=== PATIENT | female | born 1990 | race Caucasian/White ===

== ENCOUNTER 2019-10-28 18:59 | Emergency (ER) | payer OTHER ==
[2019-10-28 19:10] VITALS: BP 156/80; PULSE 90; TEMP 97.6; BMI 33.6
--- NOTE | 2019-10-28 19:13 | PDOC ---
Rapid Medical Evaluation Chief Complaint: Rash Time Seen by Provider: 10/28/19 19:07 Medical Evaluation: Allergies Allergy/AdvReac Type Severity Reaction Status Date / Time No Known Allergies Allergy Verified 10/28/19 19:07 10/28/19 19:08 Pt currently 24 weeks , presents for evaluation of rash starting one week ago. She states it is itchy and gets better with benadryl. She also notes she is taking bactrim for belly button drainage. Had labs done for the rash back in September which were normal. Exam: blanching lacy rash to chest Orders: nothing Pt to proceed to the ER for further evaluation Discharge Disposition - Diagnosis Rash - Referrals - Patient Instructions - Post Discharge Activity
--- NOTE | 2019-10-28 20:51 | PDOC ---
History of Present Illness - General Chief Complaint: Rash Stated Complaint: RASH Time Seen by Provider: 10/28/19 19:07 - History of Present Illness Initial Comments: 10/28/19 20:46 38-week gravid 29-year-old female presents for evaluation of multiple complaints. She has discharge from her bellybutton she describes as purulent. A rash on her vagina. Under her breasts there is another rash. And she shows me a positive culture report for trichomonas. She was never treated for trichomonas. The report was dated on the of this month and the culture was taken in September Past History - Past Medical History Allergies/Adverse Reactions: Allergies Allergy/AdvReac Type Severity Reaction Status Date / Time amoxicillin Allergy Itching Verified 10/28/19 19:08 - Psycho Social/Smoking Cessation Hx Smoking History: Never smoked Hx Alcohol Use: No Drug/Substance Use Hx: No Review of Systems - Review of Systems Constitutional: No: Fever : Yes: Discharge. No: Burning, Dysuria Integumentary: Yes: Pruritus, Rash *Physical Exam - Vital Signs Last Vital Signs Temp Pulse Resp BP Pulse Ox 97.6 F 90 16 156/80 97 10/28/19 19:00 10/28/19 19:00 10/28/19 19:00 10/28/19 19:00 10/28/19 19:00 - Physical Exam 10/28/19 20:47 GENERAL: The patient is awake, alert, and fully oriented, in no acute distress. HEAD: Normal with no signs of trauma. EYES: sclera anicteric, conjunctiva clear. ENT: Ears normal tympanic membranes normal oropharynx clear uvula midline NECK: Normal range of motion LUNGS: Breath sounds equal, clear to auscultation bilaterally. No wheezes, and no crackles. HEART: S1 and S2 without murmur, rub or gallop. ABDOMEN: Gravid abdomen EXTREMITIES: Normal range of motion, no edema. No clubbing or cyanosis. No cords, erythema, or tenderness. NEUROLOGICAL: Cranial nerves II through XII grossly intact. Normal speech, normal gait. PSYCH: Normal mood, normal affect. SKIN: Warm, Dry, normal turgor, The skin examination was done with a female nurse in the room. There are raised wheals on the external genitalia without indication of secondary infection there is a scaly rash on the anterior breast and under surface of the breast. There is no discharge from the nav Medical Decision Making - Medical Decision Making 10/28/19 20:49 I have obtained a vaginal swab culture and a urinary culture. Metronidazole is category B in . I will hold off on treatment till have a positive culture. Discharge - Discharge Information Problems reviewed: Yes Clinical Impression/Diagnosis: Rash Condition: Stable Disposition: HOME - Admission No - Follow up/Referral Referrals: ON STAFF,NOT [Primary Care Provider] - - Patient Discharge Instructions Additional Instructions: Urine culture for gonorrhea chlamydia and trichomonas were done. A vaginal swab was also done. You may take Benadryl as directed for itching and use calamine lotion topically. Return to the emergency room for worsening symptoms and without fail follow-up with your garage door hanger in 1 to 2 days for further evaluation and treatment options. - Post Discharge Activity
[2019-10-28 21:11] LABS: PH,URINE 5.5 (5.0-8.0); URINE APPEARANCE CLOUDY; URINE BILIRUBIN NEGATIVE (NEGATIVE); URINE COLOR YELLOW; URINE GLUCOSE (UA) NEGATIVE (NEGATIVE); URINE KETONE TRACE (NEGATIVE); URINE LEUK ESTERASE NEGATIVE (NEGATIVE); URINE NITRITE NEGATIVE (NEGATIVE); URINE PROTEIN NEGATIVE (NEGATIVE); URINE UROBILINOGEN 0.2 mg/dL (0.2-1.0)
== END 2019-10-28 21:00 | disposition home or self-care (01) ==
LOC: JER 18:59
DX: O26.892 Other specified pregnancy related conditions, second trimester (principal); R21 Rash and other nonspecific skin eruption; Z3A.24 24 weeks gestation of pregnancy; Z88.0 Allergy status to penicillin
CPT/HCPCS: 36415; 81003; 87070; 87075; 87086; 87186; 87205; 87491; 87591; 99281-25

== ENCOUNTER 2019-11-03 16:55 | Inpatient (IN) | payer OTHER ==
[2019-11-03 17:57] VITALS: BMI 35.2
[2019-11-03 19:42] LABS: RETICULOCYTES 3.1 % (0.5-1.5)
[2019-11-03 19:51] LABS: BASO % 0.3 % (0-2.0); EOS % 1.8 % (0-4.5); HEMATOCRIT 34.5 % (32.4-45.2); HEMOGLOBIN 11.2 GM/dL (10.7-15.3); LYMPH % 15.7 % (8-40); MCH 28.4 pg (25.7-33.7); MCHC 32.6 g/dl (32.0-36.0); MEAN CELL VOLUME 87.3 fl (80-96); MEAN PLT VOLUME 11.8 fl (7.5-11.1); MONO % 4.9 % (3.8-10.2); NEUT % 77.3 % (42.8-82.8); PLATELET COUNT 151 K/MM3 (134-434); RBC 3.95 M/mm3 (3.60-5.2); RDW 15.5 % (11.6-15.6); WHITE BLOOD COUNT 12.4 K/mm3 (4.0-10.0)
[2019-11-03 20:00] LABS: URIC ACID 4.8 mg/dL (2.6-7.2)
[2019-11-03 20:01] LABS: BLOOD UREA NITROGEN 9.2 mg/dL (7-18); CALCIUM 9.1 mg/dL (8.5-10.1); CREATININE 0.6 mg/dL (0.55-1.3); POTASSIUM 4.2 mmol/L (3.5-5.1)
[2019-11-03 20:10] LABS: INR 0.88 (0.83-1.09); PROTHROMBIN TIME (PATIENT) 10.4 SEC (9.7-13.0)
[2019-11-03] MEDS ORDERED: DINOPROSTONE 10 MG VAGINAL SUPPOSITORY VG ONE (20:45)
--- NOTE | 2019-11-03 20:56 | HP ---
Past Medical History - Admission Chief Complaint: PUPPS. 39 weeks History of Present Illness: 29 yo G P EDC EGA 38.6 weeks admitted for PUPPS for cervidil induction History Source: Patient Limitations to Obtaining History: No Limitations - Past Medical History ...: 2 ...Para: 1 ...Term: 0 ...: 0 ...Spon : 0 ...Induced : 1 ...Multiple Gestation: 0 ...EDC by Sono: 11/08/19 - Past Surgical History Past Surgical History: Yes: None Hx Myomectomy: No Hx Transabdominal Cerclage: No - Smoking History Smoking history: Never smoked Have you smoked in the past 12 months: No - Alcohol/Substance Use Hx Alcohol Use: No - Social History History of Recent Travel: No Home Medications - Allergies Allergies/Adverse Reactions: Allergies Allergy/AdvReac Type Severity Reaction Status Date / Time amoxicillin Allergy Intermediate Itching Verified 11/03/19 18:35 - Home Medications Home Medications: Ambulatory Orders Cephalexin [Keflex] 500 mg PO BID #14 capsule 11/02/19 Docusate Sodium [Colace] 100 mg PO DAILY 11/03/19 Ferrous Sulfate [Iron] 325 mg PO DAILY 11/03/19 Vitamins (Sjr) - 1 tab PO DAILY 11/03/19 Valacyclovir HCl [Valtrex] 500 mg PO DAILY 11/03/19 Review of Systems - Review of Systems Constitutional: reports: No Symptoms Eyes: reports: No Symptoms HENT: reports: No Symptoms Neck: reports: No Symptoms Cardiovascular: reports: No Symptoms Respiratory: reports: No Symptoms Gastrointestinal: reports: No Symptoms Genitourinary: reports: No Symptoms Breasts: reports: No Symptoms Reported Musculoskeletal: reports: No Symptoms Integumentary: reports: No Symptoms Neurological: reports: No Symptoms Endocrine: reports: No Symptoms Hematology/Lymphatic: reports: No Symptoms Psychiatric: reports: No Symptoms Physical Exam - Maternity Vital Signs: Vital Signs Temperature 98.6 F 11/03/19 18:00 Pulse Rate 90 11/03/19 20:00 Respiratory Rate 11/03/19 20:00 Blood Pressure 135/78 11/03/19 20:00 O2 Sat by Pulse Oximetry (%) Constitutional: Yes: Well Nourished, No Distress Cardiovascular: Yes: WNL Breast(s): Yes: WNL - Abdominal Exam/OB Fundal Height: 39 Number of Fetuses: Single Presentation: Vertex Contractions: No Category: I - Vaginal Exam/OB Dilatation (cm): 1 Effacement (%): 70 Amniotic Membrane Status: Intact Presentation: Vertex/Position Station: -1 - Physical Exam Musculoskeletal: Yes: WNL Extremities: Yes: WNL - Labs Lab Results: CBC, BMP 11/03/19 18:50 11/03/19 18:50 Problem List - Problems (1) PUPP (pruritic urticarial papules and plaques of ) Problems reviewed: Yes Code(s): O26.86 - PRURITIC URTICARIAL PAPULES AND PLAQUES OF (PUPPP) (2) 39 weeks gestation of Code(s): Z3A.39 - 39 WEEKS GESTATION OF Assessment/Plan 38.3 week PUPPS Plan cervidil
[2019-11-03] MEDS ORDERED: diphenhydrAMINE HCL 25 MG CAPSULE (FP) PO PRN (21:01)
[2019-11-03] MEDS ORDERED: BUTORPHANOL TARTRATE 1 MG/ML VIAL IVPB ONE (21:02)
[2019-11-04] MEDS: ELECTROLYTE-148 SOLN 1,000 ML IV SCH ×2 (03:30→09:46)
--- NOTE | 2019-11-04 03:42 | PN ---
Ante-Partal Exam - Subjective Subjective: Pt doing well Vital Signs: Vital Signs Temperature 98.4 F 11/04/19 02:00 Pulse Rate 85 11/04/19 02:00 Respiratory Rate 20 11/04/19 02:00 Blood Pressure 124/77 11/04/19 02:00 O2 Sat by Pulse Oximetry (%) Bleeding: No Headache: No Visual changes: No Right upper quadrant pain: No - Contractions Contractions: Yes Regularity: Irregular Intensity: Mild/Mod Monitor Mode: External - Exam during Labor Heart Rate: 150 Variability: Moderate Heart Rate Location: [facility] Category: I Monitor Accelerations: Present Monitor Decelerations: None Exam: Vaginal Dilatation (cm): 2 Effacement (%): 80 Amniotic Membrane Status: Intact Presentation: Vertex Station: -1 - Intrapartum Hemorrhage Risk Risk Score: 0 Risk Level: Low Risk - Assessment/Plan Assessment/Plan: PUPPS 39 week Prodromal labor Cat 1 Plan cervidil removed will start pitocin
[2019-11-04] MEDS: CLINDAMYCIN 600MG PREMIX IVPB 600 MG/50 ML BAG IVPB SCH ×2 (03:45→10:00)
[2019-11-04] MEDS ORDERED: OXYTOCIN 30 UNITS in 0.9% NS 30 UNIT/500 ML INFUS.BAG IVPB ONE (04:05)
[2019-11-04] MEDS ORDERED: CLINDAMYCIN PHOSPHATE 600 MG/4 ML VIAL ONE ×2 (04:07→09:50)
[2019-11-04] MEDS ORDERED: OXYTOCIN 30 UNITS in 0.9% NS 30 UNIT/500 ML INFUS.BAG IVPB SCH (04:45)
--- NOTE | 2019-11-04 06:51 | PN ---
Ante-Partal Exam - Subjective Subjective: Pt with bloody show Pt on pitocin 4 mu pt desires epidural Vital Signs: Vital Signs Temperature 98.0 F 11/04/19 06:00 Pulse Rate 82 11/04/19 06:00 Respiratory Rate 20 11/04/19 06:00 Blood Pressure 131/76 11/04/19 06:00 O2 Sat by Pulse Oximetry (%) Bleeding: Yes Bleeding Description: Mild Headache: No Visual changes: No Right upper quadrant pain: No - Contractions Contractions: Yes Monitor Mode: External - Exam during Labor Variability: Moderate Category: I Monitor Accelerations: Present Monitor Decelerations: None Exam: Vaginal (bloody show) Dilatation (cm): 2 Effacement (%): 80 Amniotic Membrane Status: Intact Amniotic Fluid: Blood Stained Presentation: Vertex Station: -1 - Intrapartum Hemorrhage Risk Risk Score: 0 Risk Level: Low Risk - Assessment/Plan Assessment/Plan: PUPPS 39 week Plan epidural
[2019-11-04] MEDS ORDERED: LIDO 2%/EPI 1:200000 PRESRVFRE (20 ML SDVIAL) ONE ×2 (06:53→13:51)
[2019-11-04] MEDS ORDERED: FENTANYL/BUPIVACAINE/NS/PF - PCEA - 50 ML DISP.SYRIN EP ONE ×3 (06:57→14:38)
[2019-11-04] MEDS ORDERED: NALOXONE HCL 0.4 MG/ML VIAL IVPUSH PRN (07:38)
[2019-11-04] MEDS ORDERED: FENTANYL/BUPIVACAINE/NS/PF - PCEA - 50 ML DISP.SYRIN EP SCH (07:45)
--- NOTE | 2019-11-04 08:04 | PN ---
Ante-Partal Exam - Subjective Subjective: Pt doing well after epidural Vital Signs: Vital Signs Temperature 98.0 F 11/04/19 06:00 Pulse Rate 82 11/04/19 06:00 Respiratory Rate 20 11/04/19 06:00 Blood Pressure 131/76 11/04/19 06:00 O2 Sat by Pulse Oximetry (%) Bleeding: Yes Bleeding Description: Mild Headache: No Visual changes: No Right upper quadrant pain: No - Contractions Contractions: Yes Regularity: Regular Intensity: Mild/Mod Monitor Mode: External - Exam during Labor Variability: Moderate Heart Rate Location: [facility] Category: I Monitor Decelerations: None Exam: Vaginal Dilatation (cm): 2-3 Effacement (%): 80 Amniotic Membrane Status: Ruptured Amniotic Fluid: Blood Stained Presentation: Vertex Station: -1 - Intrapartum Hemorrhage Risk Risk Score: 1 Risk Level: Medium Risk - Assessment/Plan Assessment/Plan: PUPPS mild bleeding after rupture Cat 1 AROM - bloody Plan Continue observation
--- NOTE | 2019-11-04 08:21 | PN ---
Ante-Partal Exam - Subjective Subjective: Pt with passing of clot after 3 cm Vital Signs: Vital Signs Temperature 98.0 F 11/04/19 06:00 Pulse Rate 82 11/04/19 06:00 Respiratory Rate 20 11/04/19 06:00 Blood Pressure 131/76 11/04/19 06:00 O2 Sat by Pulse Oximetry (%) Bleeding: Yes Headache: No Visual changes: No Right upper quadrant pain: No - Contractions Contractions: Yes Regularity: Regular Intensity: Mild/Mod Monitor Mode: External - Exam during Labor Variability: Moderate Heart Rate Location: [facility] Category: I Monitor Accelerations: Present Monitor Decelerations: None Exam: Vaginal Dilatation (cm): 2-3 Effacement (%): 80 Amniotic Membrane Status: Ruptured Amniotic Fluid: Blood Stained Presentation: Vertex Station: -1 - Intrapartum Hemorrhage Risk High Risk Factors: New Active Bleeding Risk Score: 2 Risk Level: High Risk - Assessment/Plan Assessment/Plan: Cat 1 Vaginal bleeding ro placenta abruption PUPPS Plan usg at bedroom
[2019-11-04] MEDS ORDERED: diphenhydrAMINE HCL 25 MG CAPSULE (FP) PO PRN (08:27)
[2019-11-04] MEDS ORDERED: diphenhydrAMINE HCL 25 MG CAPSULE (FP) PO ONE (09:04)
[2019-11-04] MEDS ORDERED: OXYTOCIN 20 UNITS in 0.9% NS 20 UNIT/1,000 ML INFUS.BAG IV ONE (15:37)
--- NOTE | 2019-11-04 16:03 | PN ---
Ante-Partal Exam - Subjective Subjective: Pt doing well and feeling pressure Vital Signs: Vital Signs Temperature 98.6 F 11/04/19 13:45 Pulse Rate 95 H 11/04/19 15:15 Respiratory Rate 18 11/04/19 15:15 Blood Pressure 127/79 11/04/19 15:15 O2 Sat by Pulse Oximetry (%) 100 11/04/19 15:15 Bleeding: No Headache: No Visual changes: No Right upper quadrant pain: No - Contractions Contractions: Yes Regularity: Regular Intensity: Moderate Monitor Mode: External - Exam during Labor Heart Rate: 150 Variability: Moderate Category: I Exam: Vaginal Dilatation (cm): FD Effacement (%): 100 Amniotic Membrane Status: Ruptured Presentation: Vertex Station: +2 - Intrapartum Hemorrhage Risk Risk Score: 1 Risk Level: Medium Risk - Assessment/Plan Assessment/Plan: Stage 2 Cat 1 plan Anticipate vaginal delivery
[2019-11-04] MEDS ORDERED: BENZOCAINE 20% 57 GM BOTTLE TP PRN (16:04)
[2019-11-04] MEDS ORDERED: METHYLERGONOVINE MALEATE 0.2 MG/1 ML AMP IM PRN (16:04)
[2019-11-04] MEDS ORDERED: BISACODYL 10 MG SUPP.RECT PR PRN (16:04)
[2019-11-04] MEDS ORDERED: BENZOCAINE 28 GM HEMORRHOIDAL OINTMENT PR PRN (16:04)
[2019-11-04] MEDS ORDERED: WITCH HAZEL 50% (TUCKS) 40 PAD/JAR PAD TP PRN (16:04)
[2019-11-04] MEDS ORDERED: LIDOCAINE HCL 1% PRESERVATIVE FREE - 30ML VIAL ONE (16:10)
[2019-11-04] MEDS: OXYTOCIN 20 UNITS in 0.9% NS 20 UNIT/1,000 ML INFUS.BAG IV SCH (16:17)
--- NOTE | 2019-11-04 16:36 | PN ---
Delivery - Delivery Vaginal Delivery: No Problems Type of Anesthesia: Epidural Episiotomy/Laceration: 1st degree (primary laceration repaired with 2-0 chromic suture) EBL (cc): 250 Delivery, Single - Stages of Labor Placenta: Yes: Spontaneous - Condition of Infant Gender: Male Position: OA - Feeding Plan Initial Plan: Exclusive throughout hospitalization
[2019-11-04] MEDS ORDERED: IBUPROFEN 600 MG TABLET (FP) PO ONE (17:42)
[2019-11-04] MEDS ORDERED: ACETAMINOPHEN 325 MG TABLET (FP) ONE (17:43)
[2019-11-04] MEDS: IBUPROFEN 600 MG TABLET (FP) PO PRN ×2 (17:45→23:14)
[2019-11-04] MEDS: ACETAMINOPHEN 325 MG TABLET (FP) PO PRN ×2 (17:45→23:14)
[2019-11-05 08:31] LABS: BASO % 0.3 % (0-2.0); EOS % 2.1 % (0-4.5); HEMATOCRIT 28.2 % (32.4-45.2); HEMOGLOBIN 9.2 GM/dL (10.7-15.3); LYMPH % 18.5 % (8-40); MCH 28.8 pg (25.7-33.7); MCHC 32.7 g/dl (32.0-36.0); MEAN CELL VOLUME 88.2 fl (80-96); MEAN PLT VOLUME 11.9 fl (7.5-11.1); MONO % 5.9 % (3.8-10.2); NEUT % 73.2 % (42.8-82.8); PLATELET COUNT 113 K/MM3 (134-434); RBC 3.19 M/mm3 (3.60-5.2); RDW 15.5 % (11.6-15.6); WHITE BLOOD COUNT 11.7 K/mm3 (4.0-10.0)
--- NOTE | 2019-11-05 09:10 | PN ---
Post Note - Post Date of Delivery: 11/04/19 Post Day: 1 Vital Signs: Vital Signs - 24 hr 11/04/19 11/04/19 11/04/19 09:30 09:45 10:00 Temperature 97.9 F Pulse Rate 75 75 71 Respiratory 18 17 18 Rate Blood Pressure 124/82 124/82 111/67 O2 Sat by Pulse 100 100 100 Oximetry (%) 11/04/19 11/04/19 11/04/19 10:15 10:30 10:45 Temperature Pulse Rate 69 72 69 Respiratory 18 16 17 Rate Blood Pressure 119/73 121/82 121/78 O2 Sat by Pulse 100 100 100 Oximetry (%) 11/04/19 11/04/19 11/04/19 11:00 11:15 11:30 Temperature Pulse Rate 76 78 76 Respiratory 18 17 18 Rate Blood Pressure 130/83 122/79 125/78 O2 Sat by Pulse 100 100 99 Oximetry (%) 11/04/19 11/04/19 11/04/19 11:45 12:00 12:15 Temperature 98.1 F Pulse Rate 85 80 78 Respiratory 18 16 16 Rate Blood Pressure 125/84 131/78 119/79 O2 Sat by Pulse 100 100 100 Oximetry (%) 11/04/19 11/04/19 11/04/19 12:30 12:45 13:00 Temperature Pulse Rate 80 80 91 H Respiratory 17 18 18 Rate Blood Pressure 111/76 127/80 127/77 O2 Sat by Pulse 100 99 100 Oximetry (%) 11/04/19 11/04/19 11/04/19 13:15 13:30 13:45 Temperature 98.6 F Pulse Rate 86 93 H 84 Respiratory 18 20 18 Rate Blood Pressure 124/79 137/79 125/83 O2 Sat by Pulse 99 100 100 Oximetry (%) 11/04/19 11/04/19 11/04/19 14:00 14:15 14:30 Temperature Pulse Rate 75 77 77 Respiratory 18 17 18 Rate Blood Pressure 125/71 124/71 127/71 O2 Sat by Pulse 99 100 100 Oximetry (%) 11/04/19 11/04/19 11/04/19 14:45 15:00 15:15 Temperature Pulse Rate 72 75 95 H Respiratory 17 18 18 Rate Blood Pressure 128/72 122/81 127/79 O2 Sat by Pulse 100 100 100 Oximetry (%) 11/04/19 11/04/19 11/04/19 15:30 15:45 16:30 Temperature Pulse Rate 112 H 103 H 101 H Respiratory 18 18 20 Rate Blood Pressure 126/87 131/86 125/73 O2 Sat by Pulse 100 100 Oximetry (%) 11/04/19 11/04/19 11/04/19 16:45 17:00 17:15 Temperature 98.2 F Pulse Rate 91 H 92 H 100 H Respiratory 20 20 20 Rate Blood Pressure 121/74 124/72 136/73 O2 Sat by Pulse Oximetry (%) 11/04/19 11/04/19 11/05/19 18:35 20:56 00:27 Temperature 97.9 F 98.1 F 98.5 F Pulse Rate 100 H 97 H 100 H Respiratory 18 20 20 Rate Blood Pressure 136/74 130/68 128/72 O2 Sat by Pulse Oximetry (%) 11/05/19 11/05/19 05:00 08:57 Temperature 98.5 F 98.1 F Pulse Rate 100 H 96 H Respiratory 20 18 Rate Blood Pressure 116/65 114/64 O2 Sat by Pulse Oximetry (%) Labs: Laboratory Results - last 24 hr 11/03/19 11/04/19 11/04/19 18:50 16:13 16:15 WBC RBC Hgb Hct MCV MCH MCHC RDW Plt Count MPV Absolute Neuts (auto) Neutrophils % Lymphocytes % Monocytes % Eosinophils % Basophils % Nucleated RBC % Haptoglobin 123 Cord Blood pH 7.26 7.34 Cord Blood PCO2 58.4 41.9 Cord Blood PO2 < 49 H < 49 H Cord Blood HCO3 25.3 22.0 Cord Base Excess -3.3 L -3.3 L 11/05/19 07:42 WBC 11.7 H RBC 3.19 L Hgb 9.2 L Hct 28.2 L D MCV 88.2 MCH 28.8 MCHC 32.7 RDW 15.5 Plt Count 113 L D MPV 11.9 H Absolute Neuts (auto) 8.6 H Neutrophils % 73.2 Lymphocytes % 18.5 Monocytes % 5.9 Eosinophils % 2.1 Basophils % 0.3 Nucleated RBC % 0 Haptoglobin Cord Blood pH Cord Blood PCO2 Cord Blood PO2 Cord Blood HCO3 Cord Base Excess - Subjective Subjective: No Complaints, Other (Hx of depression) - Objective Afebrile: Yes Breast: Not engorged Abdomen: Soft Uterus: Fundus firm Vagina: Scant lochia Extremities: Non-tender - Assessment/Plan (3) Normal vaginal delivery Assessment: S/P Normal Plan: Routine Care (4) Depression Assessment: S/P Normal Plan: Other (Consult with psych)
[2019-11-05] MEDS ORDERED: DIPHTH,PERTUSS(ACELL),TET 0.5 ML DISP.SYRIN IM ONE (10:00)
[2019-11-05] MEDS: OXYTOCIN 20 UNITS in 0.9% NS 20 UNIT/1,000 ML INFUS.BAG IV SCH (20:15)
[2019-11-05] MEDS ORDERED: SENNOSIDES/DOCUSATE COMBO (SENNA PLUS) TABLET (UD) PO PRN (22:11)
[2019-11-06] MEDS: IBUPROFEN 600 MG TABLET (FP) PO PRN (08:37)
[2019-11-06] MEDS: ACETAMINOPHEN 325 MG TABLET (FP) PO PRN (08:38)
--- NOTE | 2019-11-06 10:58 | CON.PSY ---
Psychiatry Consult Chief Complaint: 29 Year old female just delivered seen for Psych evaluation. She apparantly told some one that she was depresed in the past but she said she had anxiety. She denies any currant depression and has good family support. - Previous Psychiatric Treatment Outpatient: None, More than 6 mos ago Inpatient: None - Previous Substance Abuse Treatment Outpatient: None Inpatient: None - Reason for Previous Treatment Reason for Previous Treatment: Anxiety or Panic Disorder - Current Medications Current Medications: Active Medications Acetaminophen (Tylenol -) 650 mg PO Q4H PRN PRN Reason: FEVER Last Admin: 11/06/19 08:38 Dose: 650 mg Benzocaine (Americaine 20% [place] -) 1 spray TP PRN PRN PRN Reason: Pain - Topical Benzocaine (Americaine Ointment -) [address] PRN PRN PRN Reason: Pain - Topical Bisacodyl (Dulcolax Suppository -) [address] PRN PRN PRN Reason: CONSTIPATION Diphenhydramine HCl (Benadryl -) 50 mg PO HS PRN PRN Reason: INSOMNIA Diphenhydramine HCl (Benadryl -) 50 mg PO DAILY PRN PRN Reason: FOR ITCHING Last Admin: 11/04/19 09:30 Dose: 50 mg Ibuprofen (Motrin -) 600 mg PO Q4H PRN PRN Reason: PAIN LEVEL 1 - 3 Last Admin: 11/06/19 08:37 Dose: 600 mg Methylergonovine Maleate (Methergine Injection -) 0.2 mg IM Q4H PRN PRN Reason: EXCESSIVE BLEEDING Naloxone HCl (Narcan -) 0.4 mg IVPUSH PRN PRN PRN Reason: Sedation Senna/Docusate Sodium (Pericolace -) 2 tablet PO HS PRN PRN Reason: CONSTIPATION Last Admin: 11/05/19 23:02 Dose: 2 tablet Witch Sol/Glycerin (Tucks Pads -) 1 pad TP PRN PRN PRN Reason: Pain - Topical - Allergies Allergies: Allergies Allergy/AdvReac Type Severity Reaction Status Date / Time amoxicillin Allergy Intermediate Itching Verified 11/03/19 18:35 - Current Living Status Usual Living Arrangement: With Spouse - Current Mental Status Evaluation Appearance: Well Groomed Attitude: Cooperative - Affect Affect: Full Range - Mood Mood: Euthymic - Speech/Language Expressive: Coherent - Psychomotor Activity Psychomotor Activity: Normal - Thought Process Thought Process: Intact - Thought Content Hallucinations: Absent Delusions: Absent - Self Perception Self Perception: No Impairment - Cognition Attention: Alert Orientation: Time Memory, Immediate Recall: Intact Memory, Short Term: 3/3 Memory, Remote with Promptin/3 - Concentration Serial Sevens Intact: Yes Simple Calculations Intact: Yes - Abstraction Proverb Interpretation: Intact Judgement: Intact - Insight Insight: Intact - Suicidal Ideation Suicidal Ideation: No - Homicidal Ideation Homicidal Ideation: No Assessment/Plan 1) No Acute Mental illness. 2) can be discharged home. No psych follow up needed.
[2019-11-06 11:01] VITALS: BP 126/78; PULSE 99; TEMP 98.2
== END 2019-11-06 13:30 | disposition home or self-care (01) | DRG 560 ==
LOC: JLDR 16:55 → J3W 11-04 18:23
PROVIDERS: ADMIT Obstetrics & Gynecology; ATTEND Obstetrics & Gynecology
PROC: 3E0P7VZ Introduction of Hormone into Female Reproductive, Via Natural or Artificial Opening (ICD-10-PCS; 2019-11-03)
PROC: 0HQ9XZZ Repair Perineum Skin, External Approach (ICD-10-PCS; principal; 2019-11-04)
PROC: 10E0XZZ Delivery of Products of Conception, External Approach (ICD-10-PCS; 2019-11-04)
DX: O26.86 Pruritic urticarial papules and plaques of pregnancy (PUPPP) (principal); O70.0 First degree perineal laceration during delivery; Z3A.38 38 weeks gestation of pregnancy; Z37.0 Single live birth
CPT/HCPCS: 36415; 36600; 59409; 80048; 82239; 82803; 82977; 83010; 84450; 84460; 84550; 85025; 85032; 85044; 85610; 85730; 86593; 86850; 86900; 86901; 87389; 90715